=== PATIENT | female | born 1980 | race Caucasian/White ===

== ENCOUNTER 2018-05-06 11:04 | Emergency (ER) | payer SELFPAY ==
[2018-05-06 12:48] LABS: URINE BLOOD (Dip) POC 1+ (NEGATIVE); URINE KETONES (Dip) POC Trace (NEGATIVE); URINE LEUKOCYTE EST (Dip) POC Negative (NEGATIVE); URINE NITRITE (Dip) POC Negative (NEGATIVE); URINE TOTAL PROTEIN POC Trace (NEGATIVE)
[2018-05-06 12:48] LABS: URINE PH (Dip) POC 5.5 (5.0-8.5)
== END 2018-05-06 14:14 | disposition home or self-care (01) ==
LOC: FTE 11:04
DX: O02.1 Missed abortion (principal); O99.331 Smoking (tobacco) complicating pregnancy, first trimester; F17.210 Nicotine dependence, cigarettes, uncomplicated; Z3A.12 12 weeks gestation of pregnancy
CPT/HCPCS: 76801; 81003; 81025; 99284-25